=== PATIENT | female | born 2005 | race Caucasian/White ===

== ENCOUNTER 2023-09-18 01:15 | Emergency (ER) | payer OTHER ==
[~2023-09-18] VITALS: Ht 160 cm; Wt 56.0 kg
[2023-09-18 01:28] VITALS: BP 113/83; PULSE 101; RESP 12; TEMP 98.3; O2SAT 100
[2023-09-18 02:15] LABS: BASOPHILS % 0.3 % (0.0-2.0); CHLORIDE 106 mEq/L (98-107); EOSINOPHILS % 2.5 % (0.0-5.0); HEMATOCRIT. 39.6 % (36.0-48.0); HEMOGLOBIN. 13.8 g/dL (12.0-16.0); LYMPHOCYTES % 12.6 % (20.0-50.0); MEAN CORPUSCULAR HEMOGLOBIN 30.5 pg (28.0-32.0); MEAN CORPUSCULAR HGB CONC 34.9 g/dL (31.0-37.0); MEAN CORPUSCULAR VOLUME 87.4 fL (81.0-99.0); MEAN PLATELET VOLUME 7.7 fl (7.4-10.4); MONOCYTES % 5.3 % (2.0-8.0); NEUTROPHILS % 79.3 % (40.0-76.0); PLATELET 265 x1000/uL (130-400); POTASSIUM 3.9 mEq/L (3.5-5.1); RED BLOOD CELL COUNT 4.53 mill/uL (4.2-5.4); RED CELL DISTRIBUTION WIDTH 13.8 % (11.6-14.6); SODIUM 138 mEq/L (136-145); WHITE BLOOD COUNT 14.1 x1000/uL (4.5-11.0)
[2023-09-18 02:16] LABS: CARBON DIOXIDE 25 mEq/L (21-32)
[2023-09-18 02:21] LABS: CREATININE 0.6 mg/dL (0.6-1.0)
[2023-09-18 02:22] LABS: GLUCOSE 95 mg/dL (70-105); UREA NITROGEN BLOOD 8 mg/dL (9-23)
[2023-09-18 02:23] LABS: ALANINE AMINOTRANSFERASE 11 IU/L (10-49); ALBUMIN 4.7 g/dL (3.2-4.8); ASPARTATE AMINOTRANSFERASE 16 IU/L (<34)
[2023-09-18 02:24] LABS: BILIRUBIN DIRECT 0.6 mg/dL (<=3.0); BILIRUBIN TOTAL 1.6 mg/dL (0.1-1.0); PROTEIN TOTAL 7.7 g/dL (6.0-8.3)
[2023-09-18 03:12] LABS: HCG SCREEN NEGATIVE
[2023-09-18] MEDS ORDERED: SODIUM CHLORIDE 0.9% 1,000 ML IV NR (03:30)
[2023-09-18 05:29] LABS: CLARITY URINE CLEAR (CLEAR); COLOR URINE YELLOW (YELLOW); GLUCOSE URINE NEGATIVE (NEGATIVE); KETONES URINE 4+ (NEGATIVE); LEUKOCYTE ESTERASE URINE 1+ (NEGATIVE); NITRITE URINE NEGATIVE (NEGATIVE); OCCULT BLOOD URINE NEGATIVE (NEGATIVE); PH URINE 5.5 (4.5-8.0); PROTEIN URINE NEGATIVE (NEGATIVE); SPECIFIC GRAVITY URINE 1.018 (1.005-1.030); UROBILINOGEN URINE 0.2 E.U./dL (0.2-1.0)
[2023-09-18] MEDS ORDERED: CEFTRIAXONE 1GM/50ML 50 ML IV ONE (06:00)
[2023-09-18 07:11] LABS: SQUAMOUS EPITHELIAL CELL URINE FEW /lpf (RARE/1+)
[2023-09-18 07:18] LABS: RBC URINE 0-2 /hpf (0-2)
[2023-09-18 07:19] LABS: BACTERIA URINE NONE SEEN
[2023-09-18] MEDS: CEFTRIAXONE 1GM/50ML 50 ML IV NR (08:52)
[2023-09-18] MEDS: SODIUM CHLORIDE 0.9% 1000ML BAG (SEPSIS BOLUS) IV NR (08:53)
[2023-09-18] MEDS ORDERED: CEFP200T13 MT (09:32)
[2023-09-18] MEDS ORDERED: ONDA4TAB11 PO (09:33)
[2023-09-18] MEDS ORDERED: IOHEXOL-300 100 ML BOTTLE ONE (13:18)
== END 2023-09-18 10:50 | disposition home or self-care (01) ==
LOC: ER 01:15
DX: R10.13 Epigastric pain (principal); F19.90 Other psychoactive substance use, unspecified, uncomplicated
CPT/HCPCS: 80076; 80048; 81003; 84703; 83605; 83690; 85025; 86850; 86900; 86901; 87040; 87086; 36415; 84145; 71045; 74177; 76705; 93005; 96365; 99291; Q9967; J0696; Z7610